=== PATIENT | female | born 1995 | race African-American/Black ===

== ENCOUNTER 2016-06-06 17:27 | Emergency (ER) | payer BC ==
[~2016-06-06] VITALS: Ht 170.2 cm; Wt 71.7 kg
[2016-06-06 18:52] VITALS: BP 130/74
--- NOTE | 2016-06-06 18:56 | PHYS DOC ---
Adult General Chief Complaint Chief Complaint: ASTHMA HPI HPI Patient is a 21 year old female with a history of asthma presents emergency Department today complaining about an asthma flareup over the past week with anemia much worse in the last 24 hours. Patient states that she takes Claritin daily for seasonal allergies. She states that she uses her nebulizer at home. Last time she used her nebulizer was earlier this morning. Patient states that she also took some prednisone this morning. She does not know the strength of her prednisone. She denies any fevers or chills. She denies hospitalization or antibiotic use within the past 90 days. Review of Systems Review of Systems Constitutional: Denies fever or chills [] Eyes: Denies change in visual acuity, redness, or eye pain [] HENT: Denies nasal congestion or sore throat [] Respiratory: Denies cough or shortness of breath [] Cardiovascular: No additional information not addressed in HPI [] GI: Denies abdominal pain, nausea, vomiting, bloody stools or diarrhea [] : Denies dysuria or hematuria [] Musculoskeletal: Denies back pain or joint pain [] Integument: Denies rash or skin lesions [] Neurologic: Denies headache, focal weakness or sensory changes [] Endocrine: Denies polyuria or polydipsia [] Current Medications Current Medications Current Medications Medications (Trade) Dose Ordered Sig/[facility] Start Time Stop Time Status Last Admin Dose Admin Albuterol/ Ipratropium (Duoneb) 3 ml 1X ONCE 06/06/16 19:00 06/06/16 19:01 DC 06/06/16 19:17 3 ML Prednisone (Prednisone) 20 mg 1X ONCE 06/06/16 19:00 06/06/16 19:01 DC 06/06/16 19:06 20 MG Allergies Allergies Allergies Coded Allergies Type Severity Reaction Last Updated Verified No Known Drug Allergies 06/06/16 No Physical Exam Physical Exam Constitutional: Well developed, well nourished, no acute distress, non-toxic appearance. [] HENT: Normocephalic, atraumatic, bilateral external ears normal, oropharynx moist, no oral exudates, nose normal. [] Eyes: PERRLA, EOMI, conjunctiva normal, no discharge. [] Neck: Normal range of motion, no tenderness, supple, no stridor. [] Cardiovascular:Heart rate regular rhythm, no murmur [] Lungs & Thorax: There is no respiratory distress respiratory fatigue. There is no posturing or sensory muscle use. There is scant, scattered bilateral end expiratory wheezing. Patient is able speak in full sentences. Oxygen saturation is 90% on room air. Abdomen: Bowel sounds normal, soft, no tenderness, no masses, no pulsatile masses. [] Skin: Warm, dry, no erythema, no rash. [] Back: No tenderness, no CVA tenderness. [] Extremities: No tenderness, no cyanosis, no clubbing, ROM intact, no edema. [] Neurologic: Alert and oriented X 3, normal motor function, normal sensory function, no focal deficits noted. [] Psychologic: Affect normal, judgement normal, mood normal. [] Current Patient Data Vital Signs Vital Signs Date Time Temp Pulse Resp B/P Pulse Ox O2 Delivery O2 Flow Rate FiO2 06/06/16 19:18 98 Room Air 06/06/16 18:52 98.3 97 22 98.3 EKG EKG [] Radiology/Procedures Radiology/Procedures [] Course & Med Decision Making Course & Med Decision Making Patient received a DuoNeb nebulized treatment by RT here today. Reevaluated the patient, her wheezing had subsided. Patient's peak flows were in the middle range between yellow green. Patient's initial efforts were poor. She had to be coached to provide maximum effort to reach maximum peak flow. Patient states that she currently does not have a primary care doctor. I advised her that she needs to find one. A pamphlet will be provided to her for assistance in finding one. Dragon Disclaimer Dragon Disclaimer This electronic medical record was generated, in whole or in part, using a voice recognition dictation system. Departure Departure Impression: Primary Impression: Asthma Disposition: HOME, SELF-CARE Condition: IMPROVED Referrals: NO PCP (PCP) Patient Instructions: Asthma Prevention-Brief, Asthma, Adult, [id number] Additional Instructions: 1. Use the nebulizer every 6 hours as needed for shortness of breath and wheezing. 2. Use the inhaler if you are way from a nebulizer. 3. Continue to take the Claritin as needed for allergy control. 4. Review the discharge instructions provided for self-care and reasons to return the emergency department. 5. Use the pamphlet provided for assistance in finding a primary care doctor to address your medical concerns. Scripts Prednisone 20 Mg Tablet2 Tab PO DAILY 5 Days Prov:ABELARDO PORTER 06/06/16 Albuterol Sulfate (Ventolin Hfa Inhaler)18 Gm Hfa.aer.ad2 Puff INH every 6 hours FOR ASTHMA #1 INHALER Ref 1 Use the inhaler when you do not have access to the nebulizer. Prov:ABELARDO PORTER 06/06/16 Albuterol Sulfate (Albuterol Sulfate Conc Neb Soln)2.5 Mg/0.5 Ml Vial.neb1 Vial NEB Q6HRS #120 VIAL Ref 5 Prov:ABELARDO PORTER 06/06/16 ABELARDO PORTER Jun 06, 2016 18:56
[2016-06-06] MEDS ORDERED: PREDNISONE 20 MG TABLET PO ONE (19:00)
[2016-06-06] MEDS ORDERED: IPRATRPIUM/ALBUTEROL 0.5/2.5MG 3 ML NEBU. NEB ONE (19:00)
[2016-06-06] MEDS ORDERED: PRED20TA PO (19:41)
[2016-06-06] MEDS ORDERED: VENTOLIN HFA18 GM INH (19:41)
[2016-06-06] MEDS ORDERED: ALBU2.5V14 NEB (19:41)
== END 2016-06-06 19:45 | disposition home or self-care (01) ==
LOC: ER 17:27
DX: J45.909 Unspecified asthma, uncomplicated (principal)
CPT/HCPCS: 94250; 94640; 99283; J7512; J7620